=== PATIENT | female | born 1995 | race Asian ===

== ENCOUNTER 2021-10-08 07:29 | Emergency (ER) | payer OTHER ==
[~2021-10-08] VITALS: Ht 152.4 cm; Wt 65.9 kg
[2021-10-08] MEDS ORDERED: ONDANSETRON HCL 4 MG TABLET PO ONE (08:15)
[2021-10-08 08:17] LABS: BASOPHILS % (AUTO) 0.7 % (0.0-2.0); EOSINOPHILS % (AUTO) 1.4 % (1.0-6.0); HEMATOCRIT 41.4 % (36-46); HEMOGLOBIN 14.1 g/dL (12.0-16.0); LYMPHOCYTES # (AUTO) 3.4 K/uL (1.0-4.8); LYMPHOCYTES % (AUTO) 44.8 % (22.0-44.0); MEAN CORPUSCULAR HEMOGLOBIN 29.6 pg (26.0-34.0); MEAN CORPUSCULAR HGB CONC 33.9 G/dL (31.0-37.0); MEAN CORPUSCULAR VOLUME 87 fL (80-100); MONOCYTES # (AUTO) 0.4 K/uL (0.1-1.0); MONOCYTES % (AUTO) 5.6 % (2.0-9.0); NEUTROPHILS # (AUTO) 3.6 K/uL (1.8-7.7); NEUTROPHILS % (AUTO) 47.5 % (40.0-70.0); PLATELET COUNT (AUTO) 297 K/uL (150-450); RED BLOOD CELL COUNT(AUTO) 4.75 MIL/uL (4.00-5.20); RED CELL DISTRIBUTION WIDTH 13.6 % (11.5-14.5)
[2021-10-08 08:27] LABS: ANION GAP 8 mmol/L (8-16); CALCIUM, TOTAL 9.3 mg/dL (8.8-10.5); CARBON DIOXIDE 27 mmol/L (22-29); CHLORIDE 101 mmol/L (98-107); CREATININE 0.62 mg/dL (0.60-1.30); GLOMERULAR FILTR. RATE CALC > 60 mL/min (>60); GLUCOSE,RANDOM 92 mg/dL (70-110); POTASSIUM 3.6 mmol/L (3.5-5.1); SODIUM SERUM 136 mmol/L (136-145); UREA NITROGEN, BLOOD 8 mg/dL (7-18)
[2021-10-08 08:34] VITALS: BP 122/76
[2021-10-08 08:38] LABS: ALANINE AMINOTRANSFERASE 57 U/L (12-78); ALKALINE PHOSPHATASE 94 U/L (46-116); ASPARTATE AMINOTRANSFERASE 36 U/L (15-37); BILIRUBIN,TOTAL 0.3 mg/dL (0.1-1.0); CREATINE KINASE, TOTAL ONLY 124 U/L (26-192); HCG,QUANTITATIVE < 1 mIU/mL (0-6); LIPASE 125 U/L (73-393); PHOSPHORUS 3.6 mg/dL (2.5-4.9); TOTAL PROTEIN, SERUM 8.4 g/dL (6.4-8.2)
== END 2021-10-08 09:18 | disposition home or self-care (01) ==
LOC: EMS 07:29
DX: R42 Dizziness and giddiness (principal)
CPT/HCPCS: 36415; 80053; 82550; 83690; 83735; 84100; 84484; 84702; 85025; 93005; 99284; Q0162

== ENCOUNTER 2022-10-23 19:30 | Emergency (ER) | payer OTHER ==
[~2022-10-23] VITALS: Ht 154.9 cm; Wt 72.7 kg
[2022-10-23 20:03] LABS: COVID AG,FIA SOURCE NASAL SWAB
[2022-10-23 20:25] LABS: INFLUENZA TYPE A NEGATIVE FOR TYPE A (NEGATIVE); INFLUENZA TYPE B NEGATIVE FOR TYPE B (NEGATIVE)
[2022-10-23] MEDS ORDERED: BENZ-227 PO (23:02)
[2022-10-23 23:16] VITALS: BP 127/68; PULSE 68; RESP 18; TEMP 97.3
== END 2022-10-24 00:01 | disposition home or self-care (01) ==
LOC: EMS 19:31
DX: J40 Bronchitis, not specified as acute or chronic (principal); Z20.822 Contact with and (suspected) exposure to COVID-19
CPT/HCPCS: 71045; 87804; 99284

== ENCOUNTER 2022-11-04 09:46 | Emergency (ER) | payer OTHER ==
[~2022-11-04] VITALS: Ht 152.4 cm; Wt 71.4 kg
[~2022-11-04 09:46] MED LIST: BENZ-227 PO
[2022-11-04 09:55] VITALS: TEMP 97.7
[2022-11-04] MEDS ORDERED: CEPH-558 PO (11:27)
[2022-11-04 11:56] VITALS: BP 114/70; PULSE 76; RESP 18
== END 2022-11-04 12:22 | disposition home or self-care (01) ==
LOC: EMS 09:47
DX: L03.032 Cellulitis of left toe (principal); Z98.890 Other specified postprocedural states
CPT/HCPCS: 99283; Z7502

== ENCOUNTER 2023-11-23 09:52 | Emergency (ER) | payer OTHER ==
[~2023-11-23] VITALS: Ht 154.9 cm; Wt 71.8 kg
[~2023-11-23 09:52] MED LIST changes: -BENZ-227 PO; +CEPH-558 PO
[2023-11-23 10:03] VITALS: TEMP 98.1
[2023-11-23 13:08] VITALS: BP 120/60; PULSE 74; RESP 18
== END 2023-11-23 13:09 | disposition home or self-care (01) ==
LOC: EMS 09:52
DX: S69.92XA Unspecified injury of left wrist, hand and finger(s), initial encounter (principal); Z98.890 Other specified postprocedural states; W51.XXXA Accidental striking against or bumped into by another person, initial encounter; Y93.11 Activity, swimming; Y92.89 Other specified places as the place of occurrence of the external cause; Y99.8 Other external cause status
CPT/HCPCS: 99283